=== PATIENT | female | born 1960 | race Asian ===

== ENCOUNTER 2018-07-06 05:15 | Observation (INO) | payer OTHER ==
[2018-07-03 18:27] VITALS: BMI 31.0
[2018-07-06] VITALS (30 sets, daily range): BP systolic 90–119; BP diastolic 52–77; PULSE 66–102; RESP 15–23; Ht 162.6 cm; Wt 86.0 kg
[~2018-07-06] VITALS: Ht 162.6 cm; Wt 86.0 kg
[~2018-07-06 05:15] MED LIST: LEVO112T57 PO
[2018-07-06] MEDS ORDERED: CEFAZOLIN 2 GM/50 ML (PMX) 50 ML IVPB ONE (06:00)
[2018-07-06] MEDS ORDERED: POLYMYXIN/BACITRACIN 1L IRRIG ONE ×2 (06:42→06:52)
[2018-07-06] MEDS ORDERED: BUPIVACAINE 0.25% (MPF) 30 ML INJ ONE (06:56)
[2018-07-06] MEDS ORDERED: SURGIFOAM POWDER 1 GM KIT ONE (06:56)
[2018-07-06] MEDS ORDERED: BUPIVACAINE 0.5%/EPI (SDV) 30 ML INJ ONE (06:56)
[2018-07-06] MEDS ORDERED: THROMBIN 5000 UNIT VIAL ONE (06:57)
[2018-07-06] MEDS ORDERED: GELATIN SIZE 100 SPONGE ONE (06:59)
[2018-07-06] MEDS ORDERED: SEVOFLURANE 15 MIN ONE (07:00)
--- NOTE | 2018-07-06 07:11 | PREAC ---
Date/Time of Note Date/Time of Note DATE: 07/06/18 TIME: 07:10 Anesthesia Eval and Record Evaluation Time Pre-Procedure Interview DATE: 07/06/18 TIME: 07:10 Age 58 Sex female NPO: 8 hrs Preoperative diagnosis Spinal stenosis s/p fusion, L5-S1 Planned procedure MIS foraminectomy, L5-S1 Past Medical History Past Medical History: Includes Cardio: Dyslipidemia Endo: Hypothyroid GI: Obesity Surgery & Anesthesia Issues No known issue Meds Anticoagulation: No Beta Jan within 24 hr: No Reason Beta Jan not given: Pt. not on B-Jan Reported Medications Levothyroxine Sodium* (Levothyroxine Sodium*) 112 Mcg Tablet, 112 MCG PO BEFORE BREAKFAST, #30 TAB 07/03/18 Current Medications Lactated Ringer's 1,000 ml @ 25 mls/hr Q24H IV* ; Start 07/06/18 at 06:00 Meds reviewed: Yes Allergies Coded Allergies: latex (Verified Allergy, Severe, rash, 07/06/18) Uncoded Allergies: clear tape (Allergy, Severe, terrible rash, 07/03/18) Allergies Reviewed: Yes Labs/Studies Labs Reviewed: Reviewed by anesthesiologist test: N/A Pre-procedure Exam Last vitals Vital Signs Date Temp Pulse Resp B/P (MAP) Pulse Ox O2 O2 Flow FiO2 Time Delivery Rate 07/06/18 96.7 66 18 119/77 96 Room Air 06:54 (91) Airway: Adequate mouth opening Mallampati: Mallampati II Teeth: Normal Lung: Normal Heart: Normal ASA Physical Status ASA physical status: 2 Emergency: None Planned Anesthetic General/MAC: ETT Planned Pain Management Parenteral pain med Pre-operative Attestations Prior to commencing anesthesia and surgery, the patient was re-evaluated, there was verification of: *The patient's identity *The results of appropriate recent lab work and preoperative vital signs *The above evaluation not changing prior to induction *Anesthetic plan, risk benefits, alternative and complications discussed with patient/family; questions answered; patient/family understands, accepts and wishes to proceed. TYLER WU MD Jul 06, 2018 07:11
[2018-07-06] MEDS ORDERED: SUCCINYLCHOLINE CHLORIDE 100 MG/5 ML SYG IV ONE (07:28)
[2018-07-06] MEDS ORDERED: PROPOFOL 20 ML ONE (07:28)
[2018-07-06] MEDS ORDERED: ROCURONIUM 50 MG INJ ONE ×2 (07:28→08:49)
[2018-07-06] MEDS ORDERED: LIDOCAINE 2% (SDV) 5 ML INJ ONE (07:28)
[2018-07-06] MEDS ORDERED: NEOSTIGMINE 3 MG/3 ML SYRINGE ONE ×2 (07:28→08:11)
[2018-07-06] MEDS ORDERED: GLYCOPYRROLATE 0.4 MG INJ ONE ×2 (07:28→08:11)
[2018-07-06] MEDS ORDERED: MEPERIDINE 100 MG INJ ONE (07:30)
--- NOTE | 2018-07-06 07:30 | HPN ---
Date/Time of Note Date/Time of Note DATE: 07/06/18 TIME: 07:29 Interval H&P Admission Note Pt. seen H&P reviewed: No system changes CINTIA RIDER MD Jul 06, 2018 07:30
[2018-07-06] MEDS ORDERED: CEFAZOLIN 1 GM INJ ONE (08:07)
[2018-07-06] MEDS ORDERED: METOCLOPRAMIDE 10 MG INJ ONE (08:07)
[2018-07-06] MEDS ORDERED: ONDANSETRON 4 MG INJ ONE (08:07)
[2018-07-06] MEDS ORDERED: EPHEDrine SULFATE 50 MG/5 ML SYG IV PRN (10:00)
[2018-07-06] MEDS ORDERED: MEPERIDINE 25 MG INJ IV PRN (10:00)
[2018-07-06] MEDS ORDERED: hydrALAzine 20 MG INJ IV PRN (10:00)
[2018-07-06] MEDS ORDERED: ONDANSETRON 4 MG INJ IV PRN ×2 (10:00→11:30)
[2018-07-06] MEDS ORDERED: MIDAZOLAM 1 MG/ML 2 ML INJ IV PRN (10:00)
[2018-07-06] MEDS ORDERED: LABETALOL HCL 20MG INJ IV PRN (10:00)
[2018-07-06] MEDS ORDERED: DIPHENHYDRAMINE 50 MG INJ IV PRN (10:00)
[2018-07-06] MEDS ORDERED: HYDROmorphONE 1 MG/5 ML IV SYRINGE IV PRN ×3 (10:00)
[2018-07-06] MEDS ORDERED: OXYCODONE/ACETAMINOPHEN (5/325) TAB PO PRN ×2 (10:00)
[2018-07-06] MEDS ORDERED: BETAMET NA PHOS/AC(6 MG/ML) 5ML INJ ONE (10:22)
[2018-07-06] MEDS ORDERED: HEMOSTATIC MATRIX SYG ZFS ONE (10:26)
--- NOTE | 2018-07-06 11:16 | NUR ---
pacu pt FROM OR AWke alert on o2 mask no resp distress NO C/O PAIN HAS BACK DSSG DRY INTACT RT HAND 20 ANISA IV SITE IS CLEAR MOVES ALL EXTRIMITIES
[2018-07-06] MEDS ORDERED: HYDROCODONE/APAP (5/325) TAB PO PRN ×2 (11:30)
[2018-07-06] MEDS: CEFAZOLIN 1 GM/50 ML (PMX) 50 ML IVPB SCH ×2 (11:52→18:25)
--- NOTE | 2018-07-06 13:02 | NUR ---
pacu PT ALERT AWAKE ROOM AIR NO C/O PAIN VS STABLE RT HAND 20 ANISA SITE CLEARHAS BACK DSSG DRY AND INTACT FAMILY WAS NOTIFIED REPORT GIVEN TO REID ACSANOVA
[2018-07-06] MEDS: DEXTROSE 5%-0.45% NACL 1,000 ML IV SCH ×2 (13:35→21:08)
[2018-07-06] MEDS: LACTATED RINGER'S 1,000 ML (ENTER RATE) IV* SCH (13:38)
--- NOTE | 2018-07-06 13:50 | PN ---
Date/Time of Note Date/Time of Note DATE: 07/06/18 TIME: 13:47 Assessment/Plan VTE Prophylaxis Risk score (from Ns)>0 risk: 6 SCD applied (from Ns): Yes Pharmacological prophylaxis: NA/contraindicated Pharm contraindication: surgical contra Lines/Catheters IV Catheter Type (from Nrsg): Peripheral IV Subjective 24 Hr Interval Summary Free Text/Dictation 58 yr old woman post op back surgery. prior hx hypothyroidism, on replacement. see dictated h and p on chart post op sleepy, rouses easily, oriented moves all four, some discomfort in rt leg, no pain. continue withpost op care. Exam/Review of Systems Vital Signs Vitals Vital Signs Date Temp Pulse Resp B/P (MAP) Pulse Ox O2 O2 Flow FiO2 Time Delivery Rate 07/06/18 78 22 98/58 (71) 94 Room Air 13:00 07/06/18 98.7 11:21 07/06/18 8.0 11:16 Medications Medications Current Medications Lactated Ringer's 1,000 ml @ 25 mls/hr Q24H IV* ; Start 07/06/18 at 06:00 Hydromorphone HCl (Dilaudid) 0.2 mg PACU PRN IV MILD PAIN LEVEL 1-3; Start 07/06/18 at 10:00; Stop 07/06/18 at 16:00 Hydromorphone HCl (Dilaudid) 0.4 mg PACU PRN IV MODERATE PAIN LEVEL 4-6; Start 07/06/18 at 10:00; Stop 07/06/18 at 16:00 Hydromorphone HCl (Dilaudid) 0.6 mg PACU PRN IV SEVERE PAIN LEVEL 7-10; Start 07/06/18 at 10:00; Stop 07/06/18 at 16:00 Oxycodone/ Acetaminophen (Percocet (5/ 325)) 1 tab PACU ORDER PRN PO PAIN LEVEL 1-5; Start 07/06/18 at 10:00; Stop 07/06/18 at 16:00 Oxycodone/ Acetaminophen (Percocet (5/ 325)) 2 tab PACU ORDER PRN PO PAIN LEVEL 6-10; Start 07/06/18 at 10:00; Stop 07/06/18 at 16:00 Ondansetron HCl (Zofran Inj) 4 mg PACU ORDER PRN IV NAUSEA AND/OR VOMITING; Start 07/06/18 at 10:00; Stop 07/06/18 at 16:00 Labetalol HCl (Labetalol) 5 mg PACU ORDER PRN IV ELEVATED BLOOD PRESSURE; Start 07/06/18 at 10:00; Stop 07/06/18 at 16:00 Hydralazine HCl (Apresoline) 5 mg PACU ORDER PRN IV ELEVATED BLOOD PRESSURE; Start 07/06/18 at 10:00; Stop 07/06/18 at 16:00 Ephedrine Sulfate 5 mg PACU ORDER PRN IV BLOOD PRESSURE SUPPORT; Start 07/06/18 at 10:00; Stop 07/06/18 at 16:00 Meperidine HCl (Demerol) 25 mg PACU ORDER PRN IV POST OPERATIVE SHIVERING; Start 07/06/18 at 10:00; Stop 07/06/18 at 16:00 Diphenhydramine HCl (Benadryl) 25 mg PACU ORDER PRN IV PRURITUS; Start 07/06/18 at 10:00; Stop 07/06/18 at 16:00 Midazolam HCl (Versed) 0.5 mg PACU ORDER PRN IV ANXIETY; Start 07/06/18 at 10:00; Stop 07/06/18 at 16:00 Dextrose/Sodium Chloride 1,000 ml @ 100 mls/hr Q10H IV Last administered on 07/06/18at 13:35; Admin Dose 100 MLS/HR; Start 07/06/18 at 11:08 Acetaminophen/ Hydrocodone Bitart ([place] (5/325)) 1 tab Q4H PRN PO PAIN LEVEL 1-5; Start 07/06/18 at 11:30 Acetaminophen/ Hydrocodone Bitart ([place] (5/325)) 2 tab Q4H PRN PO PAIN LEVEL 6-10; Start 07/06/18 at 11:30 Cefazolin Sodium 50 ml @ 100 mls/hr Q6 IVPB Last administered on 07/06/18at 11:52; Admin Dose 100 MLS/HR; Start 07/06/18 at 12:00; Stop 07/07/18 at 06:29 Ondansetron HCl (Zofran Inj) 4 mg Q6H PRN IV NAUSEA AND/OR VOMITING; Start 07/06/18 at 11:30 Levothyroxine Sodium (Synthroid) 112 mcg BEFORE BREAKFAST PO ; Start 07/07/18 at 07:00; Status UNV CONSTANZA MACHADO MD Jul 06, 2018 13:50
--- NOTE | 2018-07-06 13:56 | PAC ---
Date/Time of Note Date/Time of Note DATE: 07/06/18 TIME: 13:56 Post-Anesthesia Notes Post-Anesthesia Note Last documented vital signs Vital Signs Date Temp Pulse Resp B/P (MAP) Pulse Ox O2 O2 Flow FiO2 Time Delivery Rate 07/06/18 78 22 98/58 (71) 94 Room Air 13:00 07/06/18 98.7 11:21 07/06/18 8.0 11:16 Activity: WNL Respiratory function: WNL Cardiovascular function: WNL Mental status: Baseline Pain reasonably controlled: Yes Hydration appropriate: Yes Nausea/Vomiting absent: Yes TYLER WU MD Jul 06, 2018 13:56
--- NOTE | 2018-07-06 14:30 | NUR ---
PT evaluation Therapy day number 1 Evaluation Start Time 14:30 Evaluation End Time 15:30 Evaluation Total Time 60 min Subjective Current complaint of pain Pain Scale NUMERIC Pain Intensity 7 (0-10) Patient Stated Goal for Pain Relief 0 (0-10) Pain Level Comment "it's tolerable" pt wants to continue PT evaluation Pre Treatment Vital Signs Stable Yes Supine to Sit Supervised Transfer Sit to Stand Ability Supervised Bed Mobility Sit to Supine Supervised Bed Transfer Ability Supervised Chair Transfer Ability Supervised Additional Mobility Comments supervised mobility due to verbal cues for spinal precautions Gait Assist Levels Supervised Assistive Devices Front Wheel Walker Ambulation Distance 150 feet Additional Gait Comments no loss of balance noted, cues to decreased UE support Stair Climbing Ability Supervised Number of Stairs 1 Stairs Additional Stairs Assist Comments with FWW, cues for sequencing Static Sitting Balance Good Dynamic Sitting Balance Good Standing Static Balance Fair Dynamic Standing Balance Fair Safety Judgement Good Activity Tolerance Good Equipment Present A pump IV pump Post Treatment Pain Intensity 7 0-10 Additional Post Treatment Comment See note Total Minutes 60 Total Units 4 PT Technical Record Comment 58 yo woman presents s/p minimally invasive spine foraminotomy of L5-S1 secondary to spinal stenosis from previous fusion PMH: hypothyroidism Precautions: fall risk, spinal precautions PLOF: mod I with SPC, uses "sawed off" golf club for walking dogs, lives in [facility] that's handicap accessible with grab bars and walk in showers. Has significant other able to assist as needed S: Patient in bed, agreeable to PT evaluation. pt cleared for activity per RN O: PT evaluation completed, pt returned back to bed following therapy intervention with call light within reach and bed alarm activated. Spoke to RN regarding pt response to activity and PT plan of care. No reports of pain, dizziness, or shortness of breath with activity, vitals stable throughout and patient on room air with activity. A: Patient receptive to PT education and demonstrates strong mobility throughout. Gait dania slower and presents with mild limitations in weight bearing L due to decreased sensation but able to ambulate with FWW without loss of balance. With lesser device, patient presents with wider base of support with high guard gait, thus patient educated to use FWW for mobility. Patient receptive to education regarding spinal precautions and log roll. patient close to baseline functional mobility, but may benefit from continued skilled inpatient PT inhouse to improve strength, endurance, and functional mobility P: decreased need for FWW, stair training with unilateral support recommendation: No DME required as patient owns FWW and SPC, home with family when medically cleared by MD
--- NOTE | 2018-07-06 17:56 | SIPON ---
Date/Time of Note Date/Time of Note DATE: 07/06/18 TIME: 17:52 Operative Report Preoperative Diagnosis Complex spinal stenosis, subarticular, intraforaminal and extraforaminal, left, L5-S1 Postoperative Diagnosis Same Operation/Procedure Performed 1. Minimally invasive approach to spine 2. Lumbar laminotomy and subtotal facetectomy with wide foraminotomies, L5 and S1 roots, left, intra-articular and extra-articular, and extraforaminal, with added difficulty because of scar tissue and bony overgrowth Surgeon see signature line assistant activities director Kerry Anesthesia: general Estimated blood loss: 200 - 250 ml's Transfusion Required none Specimen Fragments of liberty-facet ossicles, left L5-S1, and joint and synovium Grafts/Implants none Complications none CINTIA RIDER MD Jul 06, 2018 17:56
--- NOTE | 2018-07-06 18:06 | OPR ---
Date/Time of Note Date/Time of Note DATE: 07/06/18 TIME: 17:56 Operative Report Procedure Date: Jul 06, 2018 Preoperative Diagnosis Complex spinal stenosis, left, L5-S1, with subarticular, intraforaminal and extraforaminal stenosis involving L5 and S1 roots. Postoperative Diagnosis Same Operation/Procedure Performed 1. Minimally invasive approach to spine 2. Lumbar laminotomy and subtotal facetectomy with wide foraminotomies, L5 and S1 roots, left, intra-articular and extra-articular, and extraforaminal, with added difficulty because of scar tissue and bony overgrowth Surgeon see signature line Pie Crust Mixer Kerry Anesthesia Type: general Estimated Blood Loss: 150 - 200 ml's Transfusion none Specimen Fragments of joint ossicles, synovium, and joint surfaces Grafts/Implants none Tubes/Drains None Complications none Pt Condition Post Procedure: stable Disposition: PACU Indications Chronic left L5 and S1 radiculopathy with intractable pain secondary to complex facet hypertrophy with subarticular, intraforaminal and extraforaminal stenosis, as seen on preoperative CT scan Procedure Description Patient was identified in the holding area. Her questions were answered. The surgical site was marked. She was taken to the operating room and given a general endotracheal anesthetic with appropriate lines. Spinal monitoring was started. She was positioned carefully face down on the [place] [facility]. Marker x-rays were taken. A surgical incision was planned approximately 1 inch to the left of the prior incision running from the level of the left L5 screw distally for approximately 1.5 inches. This was made sharply after injection of local anesthetic and taken down to the fascia which was divided sharply. Gant elevators were used to develop a space down to the sacrum. Shiner retractor was inserted. Several x-rays were taken to specifically localize our bony landmarks. Painstaking dissection and removal of soft tissue from the bone was accomplished from the sacrum approximately at the inferior aspect of the S1 pedicle proximally to the L5 pedicle. This was then taken medially until the prior lumbar decompression was isolated. Using a combination of tiny curettes and 1 and 2 mm Kerrison punches and eventually 2 and 3 mm pun ches, the lumbar lamina were carefully removed laterally to the pedicles and facet joints. Drill was used. The L5 root was picked up first in the dissection and decompression was taken to the level of the pedicle and eventually to the level of the lateral aspect of the pedicle. The hypertrophic facet matter was then seen extending distally well beyond the lateral most aspect of the pedicle. This was drilled off and carefully removed with 1-2 mm Kerrison punches from above the L5 nerve root well past the lateral most aspect of the pedicle. A similar procedure was then undertaken to isolate and decompress the S1 nerve root on the left side. This is not nearly as involved in terms of bony tissue but bony tissue and redundant ligamentum as well as synovium and inflammatory tissue encompassed this root as well going distally to the lateral most aspect of the S1 pedicle. Spinal monitoring returned to normal. The copious bleeders located between the roots under the facet joint, once the joint was removed, were managed with bipolar. A small quantity of Surgifoam was used. 5 drops of Kenalog and 1 cc of Marcaine with epinephrine were draped into the bottom of the wound. The Shiner retractor was removed. The fascia was closed with #1 [id number] Vicryl. 2 layers of 2-0 Vicryl were used for subcutaneous tissue. Monocryl was used for skin reinforced with Dermabond. Dressing was applied. Patient was returned to the supine position, extubated, and transferred to the recovery room in satisfactory condition with preoperative and postoperative neurologic conditions being identical with return to normalization of SSEPs within the operating room CINTIA RIDER MD Jul 06, 2018 18:06
--- NOTE | 2018-07-06 18:45 | NUR ---
RN EOSS: PATIENT STABLE, POST-OP TODAY, S/P BACK SURGERY, VS-WNL, NO C/O PAIN AT THIS TIME, DRESSING AT LOWER BACK C/D/I, TOLERATING REGULAR DIET WELL, SEEN BY PT AND CLEARED FOR NURSING, ALL ORDERS IMPLEMENTED, SAFETY PRECAUTIONS OBSERVED, BEDSIDE TABLE AND CALL LIGHT WITHIN REACH, WILL ENDORSE PLAN OF CARE TO ONCOMING RN.
[2018-07-07] MEDS: DEXTROSE 5%-0.45% NACL 1,000 ML IV SCH (00:02)
[2018-07-07 00:54] VITALS: BP 91/51; PULSE 82; RESP 18
--- NOTE | 2018-07-07 02:28 | NUR ---
NRSG NOTE: PT WAS ENDORSED TO MEME [facility] IN STABLE CONDITION AT 2330. NO ACUTE DISTRESS, NO SOB. VSS. DENIES PAIN. RESTING COMFORTABLY.
[2018-07-07 03:31] VITALS: BP 88/49; PULSE 90; RESP 19
[2018-07-07 04:45] VITALS: BP 98/55; PULSE 81; RESP 19
[2018-07-07] MEDS: LACTATED RINGER'S 1,000 ML (ENTER RATE) IV* SCH (05:02)
[2018-07-07 05:41] VITALS: BP 101/57; PULSE 80; RESP 20
[2018-07-07] MEDS: CEFAZOLIN 1 GM/50 ML (PMX) 50 ML IVPB SCH ×2 (05:44)
--- NOTE | 2018-07-07 06:06 | NUR ---
EOSS: [place], oriented X4, ambulatory using walker, assisted with use of restroom. Surgical incision dry and clean. Denies uncontrolled pain, no adverse side effects from Ancef, remains on IV hydration. Tmax 100.5, sbp dropped to the 80's, pt remains alert, orinted, not in any distress. Notified Dr Aggarwal, with orders noted and carried out. Blood cultures drawn by labm urine culture sent, for CXR, no order for bolus given. Cooling measures done, monitored closely, pt remained asymptomatic, latest BP 101/57 HR 80 and temp 99.5. To continue with current plan of care.
[2018-07-07] MEDS ORDERED: LEVOTHYROXINE 112 MCG TAB PO SCH (07:00)
[2018-07-07 07:52] VITALS: BP 105/56; PULSE 83; RESP 18
--- NOTE | 2018-07-07 10:30 | NUR ---
PT note Therapy day number 2 Subjective Current complaint of pain Pain Scale FLACC Pain Intensity 5 (0-10) Patient Stated Goal for Pain Relief 0 (0-10) Pain Level Comment "it's not bad enough to keep me up at night" Pre Treatment Vital Signs Stable Yes Transfer Training Start Time 10:30 Supine to Sit Modified Independent Transfer Sit to Stand Ability Modified Independent Bed Mobility Sit to Supine Modified Independent Bed Transfer Ability Modified Independent Chair Transfer Ability Modified Independent Additional Mobility Comments performed proper log roll precaution Transfer Training End Time 10:45 Total Transfer Training Time 15 min (8-127) Gait Training Start Time 10:45 Gait Assist Levels Modified Independent Assistive Devices Single Point Cane Ambulation Distance 300 feet Additional Gait Comments dania and sequencing improved with increased gait distance Gait Training End Time 11:15 Total Gait Training Treatment Time 30 min (8-127) Stair Climbing Ability Modified Independent Number of Stairs 2 Stairs Additional Stairs Assist Comments 2 stairs x2 with unilateral railing and SPC Static Sitting Balance Good Dynamic Sitting Balance Good Standing Static Balance Good Dynamic Standing Balance Good Additional Balance Assessments Comments good with use of SPC Safety Judgement Good Activity Tolerance Good Equipment Present A pump IV pump Post Treatment Pain Intensity 5 0-10 Additional Post Treatment Comment See note Total Treament Time 45 min (8-127) Total Minutes 45 Total Units 3 PT Technical Record Comment S: Patient in bed, agreeable to PT intervention. Pt cleared for activity per RN O: PT intervention completed, performed bed mobility, gait with SPC and stair training. No reports of pain, dizziness, or shortness of breath with activity. Spoke to RN regarding pt response to activity and PT plan of care. Patient understanding of spinal precautions and able to log roll for bed mobility without assist A: Patient demonstrates improved stability and receptive to PT education. patient demonstrates good ability to ambulate with use of SPC. Patient educated on sequencing with SPC and stair training, receptive to instruction and able to perform without difficulty or loss of balance. Patient otherwise demonstrates mod I mobility with SPC, able to improve with routine care. As such, pt does not require skilled inpatient PT at this time. Pt may ambulate with nursing assist P: Discharge physical therapy
--- NOTE | 2018-07-07 10:40 | PN ---
Date/Time of Note Date/Time of Note DATE: 07/07/18 TIME: 10:38 Assessment/Plan VTE Prophylaxis Risk score (from Ns)>0 risk: 9 SCD applied (from Ns): Yes Pharmacological prophylaxis: NA/contraindicated Pharm contraindication: surgical contra Lines/Catheters IV Catheter Type (from [facility]): Peripheral IV Urinary Cath still in place: No Assessment/Plan Result Diagram: 07/07/18 0443 07/07/18 0443 Results 24hrs Laboratory Tests Test 07/07/18 04:43 07/07/18 07:52 White Blood Count 10.6 Red Blood Count 3.78 L Hemoglobin 11.8 L Hematocrit 36.1 L Mean Corpuscular Volume 95.5 Mean Corpuscular Hemoglobin 31.2 Mean Corpuscular Hemoglobin Concent 32.7 Red Cell Distribution Width 13.0 Platelet Count 243 Mean Platelet Volume 9.6 Immature Granulocytes % 0.300 Neutrophils % 76.6 Lymphocytes % 13.2 L Monocytes % 9.2 Eosinophils % 0.3 Basophils % 0.4 Nucleated Red Blood Cells % 0.0 Immature Granulocytes # 0.030 Neutrophils # 8.1 H Lymphocytes # 1.4 Monocytes # 1.0 H Eosinophils # 0.0 Basophils # 0.0 Nucleated Red Blood Cells # 0.0 Sodium Level 137 Potassium Level 3.8 Chloride Level 104 Carbon Dioxide Level 27 Anion Gap 6 Blood Urea Nitrogen 11 Creatinine 0.63 Est Glomerular Filtrat Rate mL/min > 60 Glucose Level 118 Calcium Level 8.8 Lab Scanned Report REFERENCE LAB Subjective 24 Hr Interval Summary Free Text/Dictation first post op day.doing ok, has been up to br and working with p.t. low grade temp last pm, ok this am, no seats or chills, bp ok, yoni liq and food ok. minimal back discomfort, no leg pain l;ungs clear, hr ok, abd soft, no edema cxr neg, am labs with mild elev wbc. Exam/Review of Systems Vital Signs Vitals Vital Signs Date Temp Pulse Resp B/P (MAP) Pulse Ox O2 O2 Flow FiO2 Time Delivery Rate 07/07/18 97.8 83 18 105/56 93 Room Air 07:52 (72) 07/06/18 8.0 11:16 Intake and Output 07/06/18 07/06/18 07/07/18 1515:00 23:00 07:00 IntakeIntake Total 550 ml 550 ml 1500 ml OutputOutput Total 350 ml 900 ml BalanceBalance 200 ml 550 ml 600 ml Medications Medications Current Medications Lactated Ringer's 1,000 ml @ 25 mls/hr Q24H IV* ; Start 07/06/18 at 06:00 Dextrose/Sodium Chloride 1,000 ml @ 100 mls/hr Q10H IV Last administered on 07/07/18at 00:02; Admin Dose 100 MLS/HR; Start 07/06/18 at 11:08 Acetaminophen/ Hydrocodone Bitart ([place] (5/325)) 1 tab Q4H PRN PO PAIN LEVEL 1-5; Start 07/06/18 at 11:30 Acetaminophen/ Hydrocodone Bitart ([place] (5/325)) 2 tab Q4H PRN PO PAIN LEVEL 6-10; Start 07/06/18 at 11:30 Ondansetron HCl (Zofran Inj) 4 mg Q6H PRN IV NAUSEA AND/OR VOMITING; Start 07/06/18 at 11:30 Levothyroxine Sodium (Synthroid) 112 mcg BEFORE BREAKFAST PO Last administered on 07/07/18at 06:29; Admin Dose 112 MCG; Start 07/07/18 at 07:00 CONSTANZA MACHADO MD Jul 07, 2018 10:40
--- NOTE | 2018-07-07 10:58 | PN ---
Date/Time of Note Date/Time of Note DATE: 07/07/18 TIME: 10:58 Assessment/Plan VTE Prophylaxis Risk score (from [facility])>0 risk: 9 SCD applied (from [facility]): Yes Pharmacological prophylaxis: NA/contraindicated Pharm contraindication: surgical contra Lines/Catheters IV [facility]atheter Type (from [facility]): Peripheral IV Urinary Cath still in place: No Assessment/Plan Result Diagram: 07/07/18 0443 07/07/18 0443 Results 24hrs Laboratory Tests Test 07/07/18 04:43 07/07/18 07:52 White Blood Count 10.6 Red Blood Count 3.78 L Hemoglobin 11.8 L Hematocrit 36.1 L Mean Corpuscular Volume 95.5 Mean Corpuscular Hemoglobin 31.2 Mean Corpuscular Hemoglobin Concent 32.7 Red Cell Distribution Width 13.0 Platelet Count 243 Mean Platelet Volume 9.6 Immature Granulocytes % 0.300 Neutrophils % 76.6 Lymphocytes % 13.2 L Monocytes % 9.2 Eosinophils % 0.3 Basophils % 0.4 Nucleated Red Blood Cells % 0.0 Immature Granulocytes # 0.030 Neutrophils # 8.1 H Lymphocytes # 1.4 Monocytes # 1.0 H Eosinophils # 0.0 Basophils # 0.0 Nucleated Red Blood Cells # 0.0 Sodium Level 137 Potassium Level 3.8 Chloride Level 104 Carbon Dioxide Level 27 Anion Gap 6 Blood Urea Nitrogen 11 Creatinine 0.63 Est Glomerular Filtrat Rate mL/min > 60 Glucose Level 118 Calcium Level 8.8 Lab Scanned Report REFERENCE LAB Subjective 24 Hr Interval Summary Free Text/Dictation addendum: wbc is ok not elevated Exam/Review of Systems Vital Signs Vitals Vital Signs Date Temp Pulse Resp B/P (MAP) Pulse Ox O2 O2 Flow FiO2 Time Delivery Rate 07/07/18 97.8 83 18 105/56 93 Room Air 07:52 (72) 07/06/18 8.0 11:16 Intake and Output 07/06/18 07/06/18 07/07/18 1515:00 23:00 07:00 IntakeIntake Total 550 ml 550 ml 1500 ml OutputOutput Total 350 ml 900 ml BalanceBalance 200 ml 550 ml 600 ml Medications Medications Current Medications Lactated Ringer's 1,000 ml @ 25 mls/hr Q24H IV* ; Start 07/06/18 at 06:00 Dextrose/Sodium Chloride 1,000 ml @ 100 mls/hr Q10H IV Last administered on 07/07/18at 00:02; Admin Dose 100 MLS/HR; Start 07/06/18 at 11:08 Acetaminophen/ Hydrocodone Bitart ([place] (5/325)) 1 tab Q4H PRN PO PAIN LEVEL 1-5; Start 07/06/18 at 11:30 Acetaminophen/ Hydrocodone Bitart ([place] (5/325)) 2 tab Q4H PRN PO PAIN LEVEL 6-10; Start 07/06/18 at 11:30 Ondansetron HCl (Zofran Inj) 4 mg Q6H PRN IV NAUSEA AND/OR VOMITING; Start 07/06/18 at 11:30 Levothyroxine Sodium (Synthroid) 112 mcg BEFORE BREAKFAST PO Last administered on 07/07/18at 06:29; Admin Dose 112 MCG; Start 07/07/18 at 07:00 CONSTANZA MACHADO MD Jul 07, 2018 10:58
--- NOTE | 2018-07-07 16:17 | NUR ---
Discharge note Patient educated on discharge instructions and patient health summary., IV access removed and dry gauze applied. transportation was set up by Dr Aragon office. Patient denied experiencing any pain/discomfort. Patient stable at this time.
== END 2018-07-07 16:19 | disposition home or self-care (01) ==
LOC: SDS 05:15 → EDBD 07:30 → EDSTATUS 07:30 → SDS 11:25 → REC 11:25 → MS1 13:12
PROVIDERS: ADMIT Specialist; ATTEND Specialist
DX: M48.07 Spinal stenosis, lumbosacral region (principal)
CPT/HCPCS: 63047; 71045; 72100; 80048; 85025; 87040; 88304; 97116; 97161; 97530; G0378; J0690; J0702; J2175; J2405; J2710; J2765; J7042; J7120